=== PATIENT | female | born 1985 | race Caucasian/White ===

== ENCOUNTER 2018-04-17 18:06 | Emergency (ER) | payer MEDICARE, MEDICAID ==
[~2018-04-17] VITALS: Ht 160 cm; Wt 80.0 kg
[2018-04-17 18:08] VITALS: Ht 160 cm; Wt 80.0 kg
[2018-04-17] MEDS ORDERED: LEVOXYL100 MCG PO (18:12)
[2018-04-17] MEDS ORDERED: FENOFIBRATE134 MG PO (18:12)
[2018-04-17] MEDS ORDERED: LITHIUM CARBON300 MG PO (18:13)
[2018-04-17] MEDS ORDERED: MOBIC7.5 MG PO (18:13)
[2018-04-17] MEDS ORDERED: NEURONTIN 300300 MG (18:13)
[2018-04-17 19:59] LABS: HCG URINE NEGATIVE (NEGATIVE)
[2018-04-17] MEDS ORDERED: TORADOL10 MG PO (20:33)
[2018-04-17 20:49] VITALS: BP 150/86
== END 2018-04-17 20:49 | disposition home or self-care (01) ==
LOC: D.ER 18:06
PROVIDERS: Family Medicine
DX: M54.5 Low back pain (principal); F17.200 Nicotine dependence, unspecified, uncomplicated

== ENCOUNTER 2019-12-14 15:22 | Emergency (ER) | payer SELFPAY ==
[~2019-12-14 15:22] MED LIST: CELEXA20 MG PO; FENOFIBRATE134 MG PO; LEVOXYL100 MCG PO; LITHIUM CARBON300 MG PO; MOBIC7.5 MG PO; NEURONTIN 300300 MG; POTASSIUM99 M1 PO; TORADOL10 MG PO
[2019-12-14 15:49] VITALS: Ht 160 cm
[2019-12-14] MEDS ORDERED: NAPROSYN500 MG PO (16:11)
[2019-12-14] MEDS ORDERED: VIBRAMYCIN 100100 MG PO (16:11)
[2019-12-14 16:39] VITALS: BP 142/94
== END 2019-12-14 16:44 | disposition home or self-care (01) ==
LOC: D.ER 15:22
DX: L03.211 Cellulitis of face (principal); E06.3 Autoimmune thyroiditis

== ENCOUNTER 2020-04-18 03:58 | Emergency (ER) | payer MEDICARE ==
[~2020-04-18] VITALS: Ht 160 cm; Wt 70.9 kg
[~2020-04-18 03:58] MED LIST changes: +NAPROSYN500 MG PO; +VIBRAMYCIN 100100 MG PO
[2020-04-18 04:11] VITALS: Ht 160 cm; Wt 70.9 kg
--- NOTE | 2020-04-18 04:33 | NUR ---
DR. TOM NOTIFIED AND REVEIWED PT'S BEHAVIOR AND ASSESSMENT RESULTS. PT IS A LOW RISK PER DR. TOM. DR. TOM STATED TO GIVE RESOURCES TO PT AT TIME OF DISCHARGE. NO FURTHER ORDERS AT THIS TIME. RESOURCES REVIWED WITH PT AND SHE VERBALIZED UNDERSTANDING.
[2020-04-18] MEDS ORDERED: MEDROL DOSE PACK4 MG PO (04:50)
[2020-04-18] MEDS ORDERED: KEFLEX500 MG PO (04:50)
[2020-04-18 05:01] LABS: BASOPHILS 0.3 % (0-2); EOSINOPHILS 1.1 % (0-7); HEMATOCRIT 42.7 % (36.0-48.0); HEMOGLOBIN 14.3 g/dL (12-16); IMMATURE GRANULOCYTES 0.2 % (0-5); LYMPHOCYTES 35.6 % (15-50); MCHC 33.5 g/dL (31.0-37.0); MCV 89.7 fL (80.0-100.0); MONOCYTES 7.1 % (2-11); NEUTROPHILS 55.7 % (40-80); PLATELET COUNT 268 10x3/uL (130-400); RBC 4.76 10x6/uL (4.00-5.40); RDW 13.7 % (11.5-14.5); WBC 14.7 10x3/uL (4.8-10.8)
[2020-04-18 05:28] LABS: APTT 30.2 SECONDS (22.8-39.4); INR 0.96 (0.85-1.17); PROTIME 12.7 SECONDS (11.6-15.0)
[2020-04-18 05:29] LABS: D-DIMER-QUANTITATIVE 0.3 ug/mLFEU (0.20-0.54)
[2020-04-18 05:46] LABS: CALC OSMOLALITY 271 mosm/kg (275-300); CALCIUM 9.1 mg/dL (8.5-10.1); CARBON DIOXIDE 28.5 mmol/L (21.0-32.0); CHLORIDE - SERUM 100 mmol/L (98-107); CREATININE - SERUM 1.5 mg/dL (0.6-1.3); GLUCOSE 106 mg/dL (74-106); POTASSIUM - SERUM 3.3 mmol/L (3.5-5.1); SODIUM 136 mmol/L (136-145); UREA NITROGEN 13 mg/dL (7-18); eGFR NON AFRICAN AMERICAN 42 mL/min (90-120)
[2020-04-18 05:50] LABS: ALBUMIN 3.9 g/dL (3.4-5.0); ALKALINE PHOSPHATASE 61 U/L (30-120); ALT (SGPT) 34 U/L (10-68); BILIRUBIN - TOTAL 0.38 mg/dL (0.2-1.3); CKMB 4.3 U/L (0.0-3.6); CREATINE KINASE 401 UL (21-215); PRO BNP 29 pg/mL (0-125); PROTEIN - SERUM 7.8 g/dL (6.4-8.2)
[2020-04-18 05:52] LABS: TROPONIN-I < 0.017 ng/mL (0.000-0.060)
[2020-04-18 06:53] VITALS: BP 151/92
== END 2020-04-18 06:53 | disposition home or self-care (01) ==
LOC: D.ER 03:58
PROVIDERS: Family Medicine
DX: J01.90 Acute sinusitis, unspecified (principal); E87.6 Hypokalemia; N28.9 Disorder of kidney and ureter, unspecified; R06.02 Shortness of breath; E06.3 Autoimmune thyroiditis; Z72.0 Tobacco use

== ENCOUNTER 2020-05-10 00:17 | Emergency (ER) | payer MEDICARE ==
[~2020-05-10] VITALS: Ht 160 cm; Wt 71.8 kg
[~2020-05-10 00:17] MED LIST changes: +KEFLEX500 MG PO; +MEDROL DOSE PACK4 MG PO
[2020-05-10 00:25] VITALS: Ht 160 cm; Wt 71.8 kg
[2020-05-10] MEDS ORDERED: HYDROCODON-ACE1 EAC7 PO (00:54)
[2020-05-10 03:11] VITALS: BP 167/106
== END 2020-05-10 03:08 | disposition home or self-care (01) ==
LOC: D.ER 00:17
DX: S46.211A Strain of muscle, fascia and tendon of other parts of biceps, right arm, initial encounter (principal); M79.602 Pain in left arm; W01.0XXA Fall on same level from slipping, tripping and stumbling without subsequent striking against object, initial encounter; Y93.9 Activity, unspecified; Y92.9 Unspecified place or not applicable